=== PATIENT | female | born 1945 | race African-American/Black ===

== ENCOUNTER 2016-08-04 23:08 | Emergency (ER) | payer MEDICARE ==
[~2016-08-04] VITALS: Ht 170.2 cm; Wt 86.0 kg
[~2016-08-04 23:08] MED LIST: ASCO500C15 PO; ASPI-867 PO; ATEN50TA PO; ATOR40TA70 PO; DIPY75TA37 PO; IOHEXOL-300 100 ML BOTTLE ONE; LAMO100T PO; MAX25 PO; OMEP20TA80 PO; SODIUM CHLORIDE 0.9% 10ML VIAL ONE
[2016-08-05] MEDS ORDERED: SODIUM CHLORIDE 0.9% 1,000 ML IV ONE (00:28)
[2016-08-05 00:59] LABS: BASOPHILS % 0.9 % (0.0-2.0); EOSINOPHILS % 3.2 % (0.0-5.0); HEMATOCRIT. 36.5 % (36.0-48.0); LYMPHOCYTES % 36.7 % (20.0-50.0); MEAN CORPUSCULAR HEMOGLOBIN 29.1 pg (28.0-32.0); MEAN CORPUSCULAR VOLUME 88.3 fL (81.0-99.0); MEAN PLATELET VOLUME 7.9 fl (7.4-10.4); MONOCYTES % 9.4 % (2.0-8.0); NEUTROPHILS % 49.8 % (40.0-76.0); PLATELET 283 x1000/uL (130-400); RED BLOOD CELL COUNT 4.13 mill/uL (4.2-5.4); RED CELL DISTRIBUTION WIDTH 14.7 % (11.6-14.6); WHITE BLOOD COUNT 6.2 x1000/uL (4.5-11.0)
[2016-08-05 01:02] LABS: CHLORIDE 104 mEq/L (98-107); INDEX HEMOLYSI 1 (1-3); INDEX ICTERIC 1 (1-4); INDEX LIPEMIC 1 (1-3)
[2016-08-05 01:04] LABS: PROTHROMBIN TIME 10.2 sec
[2016-08-05 01:11] LABS: ALANINE AMINOTRANSFERASE 24 IU/L (13-61); ALBUMIN 3.3 g/dL (3.4-5.0); ANION GAP 13; CALCIUM 8.9 mg/dL (8.5-10.1); CARBON DIOXIDE 31 mEq/L (21-32); LIPASE 201 IU/L (73-393); UREA NITROGEN BLOOD 15 mg/dL (7-21); eGFR 59 mL/min (>60)
[2016-08-05 02:09] LABS: CLARITY URINE TURBID (CLEAR); COLOR URINE YELLOW (YELLOW); GLUCOSE URINE NEGATIVE (NEGATIVE); KETONES URINE NEGATIVE (NEGATIVE); LEUKOCYTE ESTERASE URINE TRACE (NEGATIVE); NITRITE URINE NEGATIVE (NEGATIVE); OCCULT BLOOD URINE 3+ (NEGATIVE); PROTEIN URINE NEGATIVE (NEGATIVE); SPECIFIC GRAVITY URINE 1.067 (1.005-1.030)
[2016-08-05] MEDS ORDERED: LOPERAMIDE 2 MG/10 ML UDC PO ONE (02:15)
[2016-08-05 02:20] LABS: SQUAMOUS EPITHELIAL CELL URINE FEW /lpf (RARE/1+)
[2016-08-05 02:22] LABS: RBC URINE 0-2 /hpf (0-2)
[2016-08-05 02:27] LABS: BACTERIA URINE 3+
[2016-08-05 05:17] VITALS: BP 135/60
== END 2016-08-05 05:25 | disposition home or self-care (01) ==
LOC: ER 23:16
DX: R19.7 Diarrhea, unspecified (principal); R10.9 Unspecified abdominal pain; I12.9 Hypertensive chronic kidney disease with stage 1 through stage 4 chronic kidney disease, or unspecified chronic kidney disease; N18.3 Chronic kidney disease, stage 3 (moderate); I69.359 Hemiplegia and hemiparesis following cerebral infarction affecting unspecified side; Z88.8 Allergy status to other drugs, medicaments and biological substances
CPT/HCPCS: 36415; 71010; 74177; 80053; 81001; 83605; 83690; 85025; 85610; 93005; 96360; 96361; 99285; A4216; J7030; Q9967